=== PATIENT | female | born 1980 | race Caucasian/White ===

== ENCOUNTER 2021-03-05 04:00 | Inpatient (IN) ==
[2021-03-05] MEDS ORDERED: Metoclopramide 10 MG/2 ML VIAL IVP PRN (04:10)
[2021-03-05] MEDS ORDERED: Naloxone 0.4 MG/ML INJ IVP PRN (04:10)
[2021-03-05] MEDS ORDERED: miSOPROStoL 25 MCG TABLET PO PRN (04:10)
[2021-03-05] MEDS ORDERED: Lidocaine 1% 20 ML MDV INFILT PRN (04:10)
[2021-03-05] MEDS ORDERED: Ondansetron 4 MG/2 ML VIAL IVP PRN (04:10)
[2021-03-05] MEDS ORDERED: *HR* FentaNYL (PF) 100 MCG/2 ML VIAL IVP PRN (04:10)
[2021-03-05] MEDS ORDERED: Famotidine 20 MG/2 ML VIAL IVP PRN (04:10)
[2021-03-05] MEDS ORDERED: Penicillin G Potassium 5,000,000 UNIT in 0.9 % Sodium Chloride Mini Bag 100 ML IVPB ONE (04:14)
[2021-03-05] MEDS ORDERED: Oxytocin 20 units/ LR 1000 mL 20 UNIT/1,000 ML BAG IVC SCH (04:15)
[2021-03-05 05:07] LABS: Basophils # 0.1 K/mcL (0.0-0.2); Basophils % 0.7 %; Eosinophils # 0.3 K/mcL (0.0-0.6); Eosinophils % 2.4 %; Hematocrit 37.6 % (35.3-44.9); Hemoglobin 12.5 g/dL (11.5-15.4); Immature Granulocytes % 1.2 % (0-4); Lymphocytes # 1.9 K/mcL (0.6-4.6); Lymphocytes % 14.2 %; Mean Corpuscular HGB Conc 33.2 g/dL (31.6-35.5); Mean Corpuscular Volume 90.4 fL (83.0-100.0); Monocytes # 0.7 K/mcL (0.0-1.3); Monocytes % 5.2 %; Neutrophils # 10.3 K/mcL (1.6-8.9); Platelet Count 258 K/mcL (140-400); Red Blood Count 4.16 M/mcL (3.82-4.97); Red Cell Distribution Width 13.9 % (11.5-14.5); Segmented Neutrophils % 76.3 %; White Blood Count 13.5 K/mcL (4.3-11.1)
[2021-03-05 05:16] LABS: Amphetamine Screen,Urine Negative ng/mL (Cutoff=1000); Barbiturate Screen,Urine Negative ng/mL (Cutoff=200); Benzodiazepines Screen,Urine Negative ng/mL (Cutoff=200); Cannabinoid Screen,Urine Negative ng/mL (Cutoff = 50); Cocaine Screen,Urine Negative ng/mL (Cutoff= 300); Opiate Screen,Urine Negative ng/mL (Cutoff=300); Phencyclidine Screen,Urine Negative ng/mL (Cutoff=25)
[2021-03-05 06:10] LABS: Adenovirus Not Detected (Not Detect); Bordetella Pertussis Not Detected (Not Detect); Chlamydophila pneumoniae Not Detected (Not Detect); Coronavirus 229E Not Detected (Not Detect); Coronavirus HKU1 Not Detected (Not Detect); Coronavirus NL63 Not Detected (Not Detect); Coronavirus OC43 Not Detected (Not Detect); Human Metapneumovirus Not Detected (Not Detect); Human Rhinovirus/Enterovirus Not Detected (Not Detect); Influenza A Subtype 2009 H1 Not Detected (Not Detect); Influenza B Not Detected (Not Detect); Mycoplasma pneumoniae Not Detected (Not Detect); Parainfluenza Virus 1 Not Detected (Not Detect); Parainfluenza Virus 2 Not Detected (Not Detect); Parainfluenza Virus 3 Not Detected (Not Detect); Parainfluenza Virus 4 Not Detected (Not Detect); Respiratory Syncytial Virus Not Detected (Not Detect); SARS-CoV-2 Not Detected (Not Detect)
[2021-03-05] MEDS ORDERED: EPHEDrine 50 MG/ML VIAL IVP PRN (06:16)
[2021-03-05] MEDS: Ringers Solution, Lactated 1,000 ML IVC SCH ×2 (09:21→17:07)
[2021-03-05] MEDS: Penicillin G Potassium 2,500,000 UNIT/105 ML MLS IVPB SCH ×4 (09:22→22:41)
[2021-03-06] MEDS: Penicillin G Potassium 2,500,000 UNIT/105 ML MLS IVPB SCH ×4 (03:25→17:02)
[2021-03-06] MEDS ORDERED: *HR* Nalbuphine 10 MG/ML AMPUL IV PRN (07:41)
[2021-03-06] MEDS: Ringers Solution, Lactated 1,000 ML IVC SCH (12:10)
[2021-03-06] MEDS: Epidural Premix (fent/bupiv) 110 ML EP SCH (20:00)
[2021-03-07] MEDS ORDERED: Lanolin 7 G OINT...G. TP PRN (04:47)
[2021-03-07] MEDS ORDERED: Acetaminophen 325 MG TABLET PO PRN (04:47)
[2021-03-07] MEDS ORDERED: Benzocaine/Menthol 56 GM AEROSOL SPRAY TP PRN (04:47)
[2021-03-07] MEDS ORDERED: Oxytocin 20 units/ LR 1000 mL 20 UNIT/1,000 ML BAG IVC SCH ×2 (04:47)
[2021-03-07] MEDS: Ibuprofen 600 MG TABLET PO PRN ×2 (06:27→18:00)
[2021-03-07] MEDS: Epidural Premix (fent/bupiv) 110 ML EP SCH (06:53)
[2021-03-07] MEDS: Prenatal Vit/FA 1 EACH TABLET PO SCH (07:47)
[2021-03-07] MEDS ORDERED: Prenatal Vit/FA 1 EACH TABLET PO SCH (09:00)
[2021-03-07] MEDS ORDERED: miSOPROStoL 100 MCG TABLET RC ONE (10:39)
[2021-03-07] MEDS ORDERED: Methylergonovine 0.2 MG/ML AMPUL IM ONE (10:39)
[2021-03-07] MEDS: Acetaminophen 325 MG TABLET PO PRN (18:00)
[2021-03-08] MEDS: Ibuprofen 600 MG TABLET PO PRN ×2 (02:46→07:49)
[2021-03-08] MEDS: Acetaminophen 325 MG TABLET PO PRN (02:46)
[2021-03-08 04:38] LABS: Basophils # 0.1 K/mcL (0.0-0.2); Basophils % 0.5 %; Eosinophils # 0.3 K/mcL (0.0-0.6); Eosinophils % 1.8 %; Hematocrit 29.9 % (35.3-44.9); Immature Granulocytes % 1.5 % (0-4); Lymphocytes # 2.2 K/mcL (0.6-4.6); Lymphocytes % 14.8 %; Mean Corpuscular HGB Conc 33.1 g/dL (31.6-35.5); Mean Corpuscular Hemoglobin 30.4 pg (28.0-33.3); Mean Corpuscular Volume 91.7 fL (83.0-100.0); Mean Platelet Volume 10.5 fL (9.4-12.4); Monocytes # 0.8 K/mcL (0.0-1.3); Monocytes % 5.2 %; Neutrophils # 11.5 K/mcL (1.6-8.9); Platelet Count 245 K/mcL (140-400); Red Blood Count 3.26 M/mcL (3.82-4.97); Segmented Neutrophils % 76.2 %; White Blood Count 15.1 K/mcL (4.3-11.1)
[2021-03-08 04:42] LABS: Hemoglobin 9.9 g/dL (11.5-15.4)
[2021-03-08] MEDS: Prenatal Vit/FA 1 EACH TABLET PO SCH (07:44)
[2021-03-08 08:26] VITALS: BP 111/64
== END 2021-03-08 10:40 | disposition home or self-care (01) | DRG 560 ==
LOC: 1NENULAB 04:09 → 1NENUOBS 03-07 05:36
PROVIDERS: ADMIT Student in an Organized Health Care Education/Training Program; ATTEND Student in an Organized Health Care Education/Training Program